=== PATIENT | male | born 1965 | race Caucasian/White ===

== ENCOUNTER 2017-11-11 21:21 | Emergency (ER) | payer BC ==
--- NOTE | 2017-11-11 21:27 | PDOC ---
History of Present Illness - General History Source: Patient Exam Limitations: No Limitations - History of Present Illness Initial Comments: 11/11/17 21:39 A portion of this note was documented by scribe services under my direction. I have reviewed the details of the note, within reason, and agree with the documentation. The case summary and management plan written by me. Assessment and plan: This is a 52-year-old male who comes in complaining of a infection of his forehead. Patient initially had it treated with Keflex without improvement of symptoms. However the infection also did not get worse with the Keflex. Patient now returns for reevaluation. Patient was given Bactrim as this most likely is MRSA. Patient discharged home with instructions to return its worse in 24 hours or not improved in 48 hours <Maximino Alves I - Last Filed: 11/11/17 21:39> - General History Source: Patient Exam Limitations: No Limitations - History of Present Illness Initial Comments: 11/11/17 21:49 The patient is a 52 year old male with no significant PMH of who presents to the emergency department with a forehead infection. The patient reports that he attained a forehead injury and was treated with keflex. The patient reports that there was no apparent improvement or worsening in symptoms with his forehead infection. He denies any other symptoms. The patient denies chest pain , shortness of breath, headache and dizziness.He denies fever, chills, nausea, vomit, diarrhea ,constipation or urinary symptoms. The patient denies any other complaints. PAST MEDICAL HISTORY: no significant history PAST SURGICAL HISTORY: no significant history FAMILY HISTORY: no pertinent history SOCIAL HISTORY: Pt lives with family and is employed. MEDICATIONS: reviewed ALLERGIES: As per nursing notes General: (+) forehead infection. No fevers or chills, no weakness, no weight loss HEENT: No change in vision. No sore throat,. No ear pain CardioVascular: No chest pain or shortness of breath Respiratory:No cough, or wheezing. Gastrointestinal: no nausea, vomiting, diarrhea or constipation, No rectal bleeding Genitourinary: No dysuria, hematuria, or frequency Musculoskeletal: No joint or muscle pain or swelling Neurologic: No headache, vertigo, dizziness or loss of consciousness Psychiatric: nor depression Skin: No rashes or easy bruising Endocrine: no increased thirst or abnormal weight change Allergic: no skin or latex allergy All other systems reviewed and normal GENERAL: The patient is awake, alert, and fully oriented, in no acute distress. HEAD: (+) partially healed abrasion with some associated erythema. No discharge and no significant swelling. EYES: Pupils equal, round and reactive to light, extraocular movements intact, sclera anicteric, conjunctiva clear. EXTREMITIES: Normal range of motion, no edema. NEUROLOGICAL: Normal speech, normal gait. PSYCH: Normal mood, normal affect. SKIN: Warm, Dry, normal turgor, no rashes or lesions noted. <Keyla Tyson - Last Filed: 11/11/17 21:50> - General Chief Complaint: Pain Stated Complaint: INFECTION TO FOREHEAD Time Seen by Provider: 11/11/17 21:26 Past History <Maximino Alves I - Last Filed: 11/11/17 21:39> <Keyla Tyson - Last Filed: 11/11/17 21:50> - Past Medical History Allergies/Adverse Reactions: Allergies Allergy/AdvReac Type Severity Reaction Status Date / Time No Known Allergies Allergy Verified 11/11/17 21:23 Home Medications: Ambulatory Orders Amlodipine Besylate [Norvasc -] 5 mg PO DAILY 11/11/17 Losartan/Hydrochlorothiazide [Losartan-Hctz 100-25 mg Tab] 1 each PO DAILY 11/11 Sulfamethoxazole/Trimethoprim [Bactrim DS -] 2 tab PO BID #40 tablet 11/11/17 *Physical Exam - Vital Signs Last Vital Signs Temp Pulse Resp BP Pulse Ox 98.4 F 87 16 153/91 99 11/11/17 21:25 11/11/17 21:25 11/11/17 21:25 11/11/17 21:25 11/11/17 21:25 <Keyla Tyson - Last Filed: 11/11/17 21:50> ED Treatment Course - Medications Given in the ED: ED Medications Discontinued Medications Generic Name Dose Route Start Last Admin Trade Name Freq PRN Reason Stop Dose Admin Trimethoprim/Sulfamethoxazole 2 each 11/11/17 21:35 11/11/17 21:40 Bactrim Ds - PO 11/11/17 21:36 2 each ONCE ONE Administration <Keyla Tyson - Last Filed: 11/11/17 21:50> *DC/Admit/Observation/Transfer - Discharge Dispostion Decision to Admit order: No <Maximino Alves I - Last Filed: 11/11/17 21:39> - Attestations Scribe Attestion: 11/11/17 21:49 Documentation prepared by Keyla Tyson, acting as nuclear medicine medical director for Maximino Alves MD. <Keyla Tyson - Last Filed: 11/11/17 21:50> Diagnosis at time of Disposition: Cellulitis of forehead - Discharge Dispostion Disposition: HOME Condition at time of disposition: Stable - Prescriptions Prescriptions: Sulfamethoxazole/Trimethoprim [Bactrim DS -] 2 tab PO BID #40 tablet - Patient Instructions Additional Instructions: Your symptoms should be better within 48 hours. However if you're significantly worse within the next 24 hours or you develop fevers and chills you should return to the ER for evaluation, IV antibiotics and possible admission. Take Bactrim 2 tablets twice a day for the next 10 days Return to the emergency department immediately with ANY new, persistent or worsening symptoms. Continue any medications as previously prescribed by your physician. You should follow up with your primary doctor as soon as possible regarding today's emergency department visit. . Please make sure your doctor reviews the results of your emergency evaluation. Thank you for coming to the Emergency Department today for your care. It was a pleasure to see you today. Please note that your evaluation is INCOMPLETE until you follow-up with your doctor.
[2017-11-11 21:32] VITALS: BP 153/91; PULSE 87; TEMP 98.4; BMI 27.1
[2017-11-11] MEDS ORDERED: SULFAMETHOXAZOLE/TRIMETHOPRIM 800MG/160MG D.S. TABLET PO ONE (21:35)
[2017-11-11] MEDS ORDERED: SULFAMETHOXAZOLE/TRIMETHOPRIM 800MG/160MG D.S. TABLET ONE (21:36)
== END 2017-11-11 21:43 | disposition home or self-care (01) ==
LOC: FER 21:21
DX: L03.211 Cellulitis of face (principal)
CPT/HCPCS: 99281-25

== ENCOUNTER 2017-11-13 09:57 | Inpatient (IN) | payer BC ==
--- NOTE | 2017-11-13 10:10 | PDOC ---
History of Present Illness - General Chief Complaint: Revisit,Wound Recheck Stated Complaint: WOUND CHECK Time Seen by Provider: 11/13/17 10:06 - History of Present Illness Initial Comments: 11/13/17 12:22 Chief complaint forehead infection History of present illness: 52 years old no significant past medical history presents to the emergency department with 2 week history of forehead infection. Patient hit his forehead with a backpack approximately 2 weeks ago clean the area with alcohol pad. Infection began patient sought treatment at urgent care was prescribed Keflex 5 days twice a day finished course last Sunday. Infection had not cleared presented to our emergency department 2 days ago and was started on Bactrim. Unfortunately no improvement in symptomatology. No fevers no chills no streaking red lines symptoms are moderate persistent constant with no exacerbating or alleviating factors. Past History - Past Medical History Allergies/Adverse Reactions: Allergies Allergy/AdvReac Type Severity Reaction Status Date / Time No Known Allergies Allergy Verified 11/13/17 09:59 Home Medications: Ambulatory Orders Amlodipine Besylate [Norvasc -] 5 mg PO DAILY 11/11/17 Losartan/Hydrochlorothiazide [Losartan-Hctz 100-25 mg Tab] 1 each PO DAILY 11/11 Sulfamethoxazole/Trimethoprim [Bactrim DS -] 2 tab PO BID #40 tablet 11/11/17 COPD: No HTN: Yes - Suicide/Smoking/Psychosocial Hx Smoking History: Never smoked Have you smoked in the past 12 months: No Information on smoking cessation initiated: No Hx Alcohol Use: (social) Drug/Substance Use Hx: No Substance Use Type: None Review of Systems - Review of Systems Comments:: 11/13/17 12:22 ROS: A complete review of 10 out of 10 review of systems is taken and is negative apart from what is previously mentioned below and in the HPI. *Physical Exam - Vital Signs Last Vital Signs Temp Pulse Resp BP Pulse Ox 98.7 F 88 16 139/84 97 11/13/17 09:57 11/13/17 09:57 11/13/17 09:57 11/13/17 09:57 11/13/17 09:57 - Physical Exam Comments: 11/13/17 12:23 Vitals: Triage Vital signs reviewed General Appearance: no acute distress, well nourished well developed, Head: Positive infection to forehead see skin exam. Cardiac: Regular rate and rhythym, no murmurs, no rubs, no gallops, Lungs: Clear to auscultation bilateral, good air movement bilaterally, Abdomen: Soft, non distended, normal bowel sounds, non tender to palpation Extremities: Full range of motion to all extremities, no cyanosis, clubbing, or edema Skin: 4 cm area of redness to forehead in the center abrasion with some yellow crusting in center. Psych: normal mood, normal affect ED Treatment Course - LABORATORY CBC & Chemistry Diagram: 11/13/17 11:00 11/13/17 11:00 Medical Decision Making - Medical Decision Making 11/13/17 12:24 Nonhealing infection to forehead. Patient is now failed to outpatient antibiotics Case discussed with infectious disease. Dr. Abad. Recomends [facility]. Will admit pt. to medicine for further management. *DC/Admit/Observation/Transfer Diagnosis at time of Disposition: Cellulitis of forehead - Discharge Dispostion Condition at time of disposition: Stable Decision to Admit order: Yes - Referrals - Patient Instructions - Post Discharge Activity
[2017-11-13 11:18] LABS: BASO % 1.5 % (0-2.0); EOS % 2.2 % (0-4.5); HEMATOCRIT 46.5 % (35.4-49); HEMOGLOBIN 16.2 GM/dl (11.7-16.9); LYMPH % 30.8 % (8-40); MCHC 34.8 g/dl (32.0-35.9); MEAN CELL VOLUME 91.9 fl (80-96); MEAN PLT VOLUME 8.4 fl (7.5-11.1); NEUT % 55.5 % (42.8-82.8); PLATELET COUNT 289 K/MM3 (134-434); RBC 5.06 M/mm3 (4.00-5.60); RDW 12.1 % (11.9-15.9); WHITE BLOOD COUNT 5.8 K/mm3 (4.0-10.8)
[2017-11-13 11:26] LABS: ALBUMIN 4.2 g/dl (3.5-5.0); ALK PHOS 37 U/L (32-92); ANION GAP 5 (8-16); BILIRUBIN,TOTAL 0.6 mg/dl (0.2-1.0); BLOOD UREA NITROGEN 15 mg/dl (7-18); CALCIUM 9.2 mg/dl (8.4-10.2); CHLORIDE 105 mmol/L (98-107); CO2 24 mmol/L (22-28); CREATININE 1.1 mg/dl (0.6-1.3); GLUCOSE,RANDOM 93 mg/dl (74-106); POTASSIUM 3.9 mmol/L (3.5-5.1); SGOT/AST 34 U/L (10-42); SGPT/ALT 40 U/L (10-40); SODIUM 134 mmol/L (136-145); TOT PROT 6.9 g/dl (6.4-8.3)
[2017-11-13] MEDS ORDERED: VANCOMYCIN 1,000 MG in DEXTROSE 5%-WATER - 250 ML IVPB ONE (12:12)
--- NOTE | 2017-11-13 12:14 | HP ---
CHIEF COMPLAINT: cellulitis to forehead PCP: Dr Long HISTORY OF PRESENT ILLNESS: Patient is a 52 -year-old male with a past medical history of hypertension. Patient reports weeks ago he tripped and fell and struck his forehead on a backpack. He was evaluated at a local urgent care and was prescribed Keflex. Patient does report compliance with medication however after 5 days he noted no significant change to the erythema to his forehead. Patient was evaluated in this emergency department on 11/11/2017 and was started on Bactrim. His first dose of Bactrim was 11/11/2017. Patient reports no improvement to the erythema and ongoing tenderness to the site. He denies any fever. Patient does report compliance with bactrim. patient does report a history of periorbital cellulitis early in the year. 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 Smoking:none Alcohol:none Drugs: none Family History: non contributory to this admission Allergies No Known Allergies Allergy (Verified 11/13/17 09:59) HOME MEDICATIONS: Home Medications Medication Instructions Recorded Amlodipine Besylate [Norvasc -] 5 mg PO DAILY 11/11/17 Losartan/Hydrochlorothiazide 1 each PO DAILY 11/11/17 [Losartan-Hctz 100-25 mg Tab] Sulfamethoxazole/Trimethoprim 2 tab PO BID #40 tablet 11/11/17 [Bactrim DS -] REVIEW OF SYSTEMS CONSTITUTIONAL: Absent: fever, chills, diaphoresis, generalized weakness, malaise, loss of appetite, weight change HEENT: Absent: rhinorrhea, nasal congestion, throat pain, throat swelling, difficulty swallowing, mouth swelling, ear pain, eye pain, visual changes CARDIOVASCULAR: Absent: chest pain, syncope, palpitations, irregular heart rate, lightheadedness , peripheral edema RESPIRATORY: Absent: cough, shortness of breath, dyspnea with exertion, orthopnea, wheezing, stridor, hemoptysis GASTROINTESTINAL: Absent: abdominal pain, abdominal distension, nausea, vomiting, diarrhea, constipation, melena, hematochezia GENITOURINARY: Absent: dysuria, frequency, urgency, hesitancy, hematuria, flank pain, genital pain MUSCULOSKELETAL: Absent: myalgia, arthralgia, joint swelling, back pain, neck pain SKIN: present: Absent: rash, itching, pallor HEMATOLOGIC/IMMUNOLOGIC: Absent: easy bleeding, easy bruising, lymphadenopathy, frequent infections ENDOCRINE: Absent: unexplained weight gain, unexplained weight loss, heat intolerance, cold intolerance NEUROLOGIC: Absent: headache, focal weakness or paresthesias, dizziness, unsteady gait, seizure, mental status changes, bladder or bowel incontinence PSYCHIATRIC: Absent: anxiety, depression, suicidal or homicidal ideation, hallucinations. PHYSICAL EXAMINATION Vital Signs - 24 hr 11/13/17 09:57 Temperature 98.7 F Pulse Rate 88 Respiratory 16 Rate Blood Pressure 139/84 O2 Sat by Pulse 97 Oximetry (%) GENERAL: Awake, alert, and fully oriented, in no acute distress. HEAD: Normal with no signs of trauma. EYES: Pupils equal, round and reactive to light, extraocular movements intact, sclera anicteric, conjunctiva clear. No lid lag. EARS, NOSE, THROAT: Ears normal, nares patent, oropharynx clear without exudates. Moist mucous membranes. NECK: Normal range of motion, supple without lymphadenopathy, JVD, or masses. LUNGS: Breath sounds equal, clear to auscultation bilaterally. No wheezes, and no crackles. No accessory muscle use. HEART: Regular rate and rhythm, normal S1 and S2 without murmur, rub or gallop. ABDOMEN: Soft, nontender, not distended, normoactive bowel sounds, no guarding, no rebound, no masses. No hepatomegaly or splenomegaly. MUSCULOSKELETAL: Normal range of motion at all joints. No bony deformities or tenderness. No CVA tenderness. UPPER EXTREMITIES: 2+ pulses, warm, well-perfused. No cyanosis. No clubbing. No peripheral edema. LOWER EXTREMITIES: 2+ pulses, warm, well-perfused. No calf tenderness. No peripheral edema. NEUROLOGICAL: Cranial nerves II-XII intact. Normal speech. Normal gait. PSYCHIATRIC: Cooperative. Good eye contact. Appropriate mood and affect. SKIN: 4 cm abrasion to forehead 1 cm of surrounding erythema and no fluctuance noted, Warm, dry, normal turgor, no rashes or lesions noted, normal capillary refill. 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 Abad - no palpable fluctuance noted to site, appreciate improvement of plastic surgeon Dr. Pierce - no leukocytosis patient is afebrile continue to trend CBC and fever curve 2) cardiovascular Hypertension - Continue Norvasc and losartan - b/p at goal 3) pulm Asthma - No acute exacerbation at this time patient reports asthma is exacerbated during change of seasons, continue Symbicort home dose with albuterol when necessary F/E/N - Low-sodium diet - Replete electrolytes when necessary ppx - pepcid - oob dispo: he requires inpatient admission after failing outpatient therapy Visit type - Emergency Visit Emergency Visit: Yes ED Registration Date: 11/13/17 Care time: The patient presented to the Emergency Department on the above date and was hospitalized for further evaluation of their emergent condition. - New Patient This patient is new to me today: Yes Date on this admission: 11/14/17 - Critical Care Critical Care patient: No Hospitalist Screening - Colonoscopy Questionnaire Colonoscopy Questionnaire: Colonoscopy Questionnaire - Patient: 50 - 75 years old and never had a screening colonoscopy: No History of colon or rectal polyps, or CA: No History of IBD, Crohn's disease or UC: No History of abdominal radiation therapy as a child: No - Relative: 1 with colon or rectal CA, or polyps at age 60 or younger: No Colon or rectal CA diagnosed at age 45 or younger: No Multiple relatives with colon or rectal CA: No - Outcome: Screening Result: Negative Screen
[2017-11-13] MEDS ORDERED: VANCOMYCIN 1,000 MG VIAL (RESTRICTED TO ID ONLY) ONE (12:19)
[2017-11-13] MEDS ORDERED: ALBUTEROL SO4 0.083% IH SOL 2.5 MG/3 ML VIAL.NEB. NEB PRN (13:36)
[2017-11-13 13:51] VITALS: BMI 27.6
[2017-11-13] MEDS ORDERED: ZOLPIDEM TARTRATE 5 MG TABLET PO PRN (14:18)
--- NOTE | 2017-11-13 16:58 | PN ---
Progress Note (short form) - Note Progress Note: ID Consult dictated Facial cellulitis/ non-healing soft tissue wound Await c/s Empiric vanco/levaquin Topical bacitracin Plastic surgery evaluation
[2017-11-13] MEDS: BACITRACIN 0.9 GM PACKET TP SCH (17:22)
[2017-11-13] MEDS ORDERED: REFRIGERATED ANITBIOTICS ONE (19:43)
[2017-11-13] MEDS ORDERED: PT OWN MED DRAWER 7, Y5N ONE (21:38)
[2017-11-13] MEDS: FAMOTIDINE 20 MG TABLET PO SCH (22:12)
[2017-11-13] MEDS: BUDESONIDE/FORMETEROL FUMARATE 80/4.5 mcg INHALER IH SCH (22:12)
[2017-11-14] MEDS ORDERED: REFRIGERATED ANITBIOTICS ONE ×2 (00:14→14:22)
[2017-11-14] MEDS: VANCOMYCIN 1,250 MG in DEXTROSE 5%-WATER - 250 ML IVPB SCH ×2 (00:16→14:25)
[2017-11-14 06:17] VITALS: BP 110/65; PULSE 69; TEMP 98.5
[2017-11-14 08:01] LABS: BASO % 1.1 % (0-2.0); EOS % 3.4 % (0-4.5); HEMATOCRIT 45.4 % (35.4-49); HEMOGLOBIN 15.9 GM/dl (11.7-16.9); LYMPH % 32.5 % (8-40); MCH 32.3 pg (25.7-33.7); MCHC 35.1 g/dl (32.0-35.9); MEAN CELL VOLUME 91.9 fl (80-96); MEAN PLT VOLUME 8.5 fl (7.5-11.1); MONO % 10.6 % (3.8-10.2); NEUT % 52.4 % (42.8-82.8); PLATELET COUNT 275 K/MM3 (134-434); RBC 4.95 M/mm3 (4.00-5.60); WHITE BLOOD COUNT 6.2 K/mm3 (4.0-10.8)
[2017-11-14 08:22] LABS: ANION GAP 6 (8-16); BLOOD UREA NITROGEN 13 mg/dl (7-18); CALCIUM 9.1 mg/dl (8.4-10.2); CHLORIDE 106 mmol/L (98-107); CO2 23 mmol/L (22-28); CREATININE 1.1 mg/dl (0.6-1.3); GLUCOSE,RANDOM 102 mg/dl (74-106); MAGNESIUM 1.9 mg/dL (1.8-2.4); PHOSPHOROUS 2.8 mg/dl (2.5-4.6); POTASSIUM 4.2 mmol/L (3.5-5.1); SODIUM 135 mmol/L (136-145)
--- NOTE | 2017-11-14 09:29 | PN ---
Progress Note, Physician History of Present Illness: No c/o forehead pain No reported wound drainage No fever/ chillls Tolerating antibiotics - Current Medication List Current Medications: Active Medications Albuterol Sulfate (Ventolin 0.083% Nebulizer Soln -) 1 amp NEB Q4H PRN PRN Reason: SHORT OF BREATH/WHEEZING Amlodipine Besylate (Norvasc -) 5 mg PO DAILY [facility] Bacitracin (Bacitracin -) 0.9 gm TP DAILY [facility] Last Admin: 11/13/17 17:22 Dose: 0.9 gm Budesonide/Formoterol Fumarate (Symbicort 80/4.5mcg -) 2 puff IH BID [facility] Last Admin: 11/13/17 22:12 Dose: 2 puff Famotidine (Pepcid -) 20 mg PO BID [facility] Last Admin: 11/13/17 22:12 Dose: 20 mg Vancomycin HCl 1,250 mg/ (Dextrose) 250 mls @ 166.667 mls/hr IVPB BID@0100, 1300 [facility]; Protocol Last Admin: 11/14/17 00:16 Dose: 166.667 mls/hr Levofloxacin (Levaquin 500 Mg Premixed Ivpb -) 500 mg in 100 mls @ 100 mls/hr IVPB DAILY [facility]; Protocol Last Admin: 11/13/17 17:22 Dose: 100 mls/hr Losartan Potassium (Cozaar -) 100 mg PO DAILY [facility] Zolpidem Tartrate (Ambien -) 5 mg PO HS PRN PRN Reason: INSOMNIA - Objective Vital Signs: Vital Signs Temperature 98.5 F 11/14/17 06:00 Pulse Rate 69 11/14/17 06:00 Respiratory Rate 18 11/14/17 06:00 Blood Pressure 110/65 11/14/17 06:00 O2 Sat by Pulse Oximetry (%) 96 11/14/17 06:00 HENT: Yes: Other (forehead ulcer dry; decreased erythema. No tenderness/ fluctuance) Cardiovascular: Yes: Regular Rate and Rhythm, S1, S2 Respiratory: Yes: CTA Bilaterally Gastrointestinal: Yes: Normal Bowel Sounds, Soft. No: Tenderness Edema: No Labs: CBC, BMP 11/14/17 07:30 11/14/17 07:30 Assessment/Plan Facial cellulitis/ non-healing soft tissue wound Await c/s Continue vancomycin/ levaquin PICC for outpatient antibiotic tx
[2017-11-14] MEDS ORDERED: PICC LINE 8 ML FLUSH PROTOCOL IVPUSH PRN (09:34)
[2017-11-14] MEDS ORDERED: LOSARTAN POTASSIUM 50 MG TABLET (FP) PO SCH (10:00)
[2017-11-14] MEDS ORDERED: amLODIPine BESYLATE 5 MG TABLET (FP) PO SCH (10:00)
[2017-11-14] MEDS: FAMOTIDINE 20 MG TABLET PO SCH (10:06)
[2017-11-14] MEDS: BACITRACIN 0.9 GM PACKET TP SCH (10:08)
[2017-11-14] MEDS: BUDESONIDE/FORMETEROL FUMARATE 80/4.5 mcg INHALER IH SCH (10:09)
--- NOTE | 2017-11-14 10:55 | CONS ---
DATE OF CONSULTATION: DATE OF DICTATION: 11/14/2017 A 52-year-old male, history of hypertension, asthma, evaluated for cellulitis of the forehead. He reports that approximately 2 weeks prior to admission he sustained trauma to his forehead after tripping and striking his head against a backpack. He developed an area of erythema which he treated topically. He noted increasing redness and swelling. He presented to an urgent care center where he was prescribed Keflex. He took the Keflex for 5 days. Despite this, he had persistent erythema and swelling of the forehead area. He had presented to the emergency room at [facility] on November 11, 2017. He was evaluated and prescribed Bactrim. He returned to the emergency room on November 13 with persistent erythema and swelling of the forehead area. He was evaluated in the emergency room, empirically treated with vancomycin. He denied any purulent wound drainage. No associated fever or chills. He is nondiabetic. No history of serious soft tissue infection requiring hospitalization. PAST MEDICAL HISTORY: Positive for hypertension and asthma. ALLERGIES: No known allergies. MEDICATIONS: Medications as an outpatient included Keflex, Bactrim, Norvasc, losartan. SOCIAL HISTORY: He lives at home with his significant other. He is a nonsmoker, nondrinker. REVIEW OF SYSTEMS: Neurologic: No loss of consciousness, seizure activity, focal weakness. Cardiac: Negative chest pain or palpitations. Respiratory: Negative cough or sputum production. Gastrointestinal: Negative vomiting or diarrhea. Genitourinary: Negative for urinary tract infection. LABORATORY DATA: White count 5.8, 55 neutrophils, 30 lymphocytes, 10 monocytes. Hematocrit 46.5. Platelet count 289. BUN 15, creatinine 1.1. Liver enzymes normal. Blood and wound cultures are pending. PHYSICAL EXAMINATION: General: He is awake and alert. He is not acutely toxic appearing. Vital Signs: Temperature 98.1, blood pressure 124/82, pulse 81, regular. Respirations 18 per minute. HEENT: Sclerae are anicteric. Examination of the forehead, there is an approximately 4 x 4-cm area of erythema present on the central forehead with a central area of superficial ulceration with encrustation. There is no drainage, no fluctuance or crepitance. No expressible pus. Minimally tender to palpation. No periorbital swelling. Cardiovascular: Heart sounds S1, S2. Lungs: Clear. Abdomen: Soft and nontender. Extremities: Negative for edema. IMPRESSION: 1. Facial cellulitis. 2. Nonhealing soft tissue wound of the face. Await culture results. Will broaden antimicrobial coverage to include possible resistant skin pathogens including methicillin-resistant Staphylococcus aureus with vancomycin. Will add Levaquin for empiric coverage of gram-negative pathogens. Apply topical Bacitracin. Plastic Surgery evaluation. Will follow. Thank you for the kind referral. JONO PAREKH M.D. [id number]
--- NOTE | 2017-11-14 11:38 | DS ---
Physical Exam: SUBJECTIVE: Patient seen and examined, patient is an laboratory throughout bedside denies any dizziness or tactile fever reports feeling well tolerating antibiotic wants to go home OBJECTIVE: Patient is a 52 -year-old male with a past medical history of hypertension. Patient reports weeks ago he tripped and fell and struck his forehead on a backpack. He was evaluated at a local urgent care and was prescribed Keflex. Patient does report compliance with medication however after 5 days he noted no significant change to the erythema to his forehead. Patient was evaluated in this emergency department on 11/11/2017 and was started on Bactrim. His first dose of Bactrim was 11/11/2017. Patient reports no improvement to the erythema and ongoing tenderness to the site. He denies any fever. Patient does report compliance with bactrim. patient does report a history of periorbital cellulitis early in the year. ER course was notable for: (1) WBC 5.8 (2)EKG, sinus rhythm with PVCs Vital Signs Period Temp Pulse Resp BP Sys/Garrison Pulse Ox Last 24 Hr 97.9 F-98.5 F 68-81 16-19 110-129/65-82 96-98 PHYSICAL EXAM GENERAL: The patient is awake, alert, and fully oriented, in no acute distress. HEAD: Normal with no signs of trauma. EYES: PERRL, extraocular movements intact, sclera anicteric, conjunctiva clear. ENT: Ears normal, nares patent, oropharynx clear without exudates, moist mucous membranes. NECK: Trachea midline, full range of motion, supple. LUNGS: Breath sounds equal, clear to auscultation bilaterally, no wheezes, no crackles, no accessory muscle use. HEART: Regular rate and rhythm, S1, S2 without murmur, rub or gallop. ABDOMEN: Soft, nontender, nondistended, normoactive bowel sounds, no guarding, no rebound, no hepatosplenomegaly, no masses. EXTREMITIES: 2+ pulses, warm, well-perfused, no edema. NEUROLOGICAL: Cranial nerves II through XII grossly intact. Normal speech, gait not observed. PSYCH: Normal mood, normal affect. SKIN: 4 cm abrasion to forehead 1 cm of surrounding erythema (much improved) and no fluctuance noted,Warm, dry, normal turgor, no rashes or lesions noted. LABS Laboratory Results - last 24 hr 11/14/17 11/14/17 11/14/17 07:30 07:30 07:30 WBC 6.2 RBC 4.95 Hgb 15.9 Hct 45.4 MCV 91.9 MCH 32.3 MCHC 35.1 RDW 12.0 Plt Count 275 MPV 8.5 Neutrophils % 52.4 Lymphocytes % 32.5 Monocytes % 10.6 H Eosinophils % 3.4 Basophils % 1.1 Sodium 135 L Potassium 4.2 Chloride 106 Carbon Dioxide 23 Anion Gap 6 L BUN 13 Creatinine 1.1 Random Glucose 102 Hemoglobin A1c % 5.3 Calcium 9.1 Phosphorus 2.8 Magnesium 1.9 Microbiology 11/13/17 11:15 Blood - Peripheral Venous Blood Culture - Preliminary NO GROWTH OBTAINED AFTER 24 HOURS, INCUBATION TO CONTINUE FOR 4 DAYS. 11/13/17 11:00 Blood - Peripheral Venous Blood Culture - Preliminary NO GROWTH OBTAINED AFTER 24 HOURS, INCUBATION TO CONTINUE FOR 4 DAYS. 11/13/17 12:15 Skin - Cellulitis Gram Stain - Final 11/13/17 12:15 Skin - Cellulitis Wound Culture - Preliminary NO GROWTH OBTAINED AFTER 24 HOURS INCUBATION, REINCUBATED. HOSPITAL COURSE: patient was admitted from emergency department for cellulitis of forehead after failing outpatient therapy. 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 patient was treated with vancomycin for 24 hours, erythema much improved. Infectious disease physician Dr. Rojas was consulted. plastic surgeon Dr. Pierce was consulted. No leukocytosis noted. Patient remained afebrile throughout admission. Patient has a known history of hypertension. Norvasc and losartan was continued and b/p at goal. PLAN - PICC line inserted 11/14/2017. - Continue vancomycin 2 g IV twice a day and levaquin 500mg daily - strict follow up with Dr Rojas on 11/16 Date of Admission:11/13/17 Date of Discharge: 11/14/17 Minutes to complete discharge: 45 Discharge Summary Reason For Visit: CELLULITIS OF FOREHEAD Current Active Problems Cellulitis of forehead (Acute) Condition: Improved - Instructions Diet, Activity, Other Instructions: continue vancomycin IV as prescribed Continue Levaquin 500 milligrams daily for the next 7 days apply bacitracin to forehead twice a day Please follow up with the infectious disease physician Dr. Rojas on Sunday, 06/2017 please call the office to schedule an appointment if any new or persistent symptoms develop please return to emergency department Referrals: Shaw Rojas MD [Staff Physician] - 11/16/17 Disposition: VNS/HOME HEALTH CARE - Home Medications Comprehensive Discharge Medication List: Ambulatory Orders Amlodipine Besylate [Norvasc -] 5 mg PO DAILY 11/11/17 Losartan/Hydrochlorothiazide [Losartan-Hctz 100-25 mg Tab] 1 each PO DAILY 11/11 Sulfamethoxazole/Trimethoprim [Bactrim DS -] 2 tab PO BID #40 tablet 11/11/17 This patient is new to me today: No Emergency Visit: Yes ED Registration Date: 11/13/17 Care time: The patient presented to the Emergency Department on the above date and was hospitalized for further evaluation of their emergent condition. Critical Care patient: No - Discharge Referral Referred to [facility] No
--- NOTE | 2017-11-14 13:28 | EKG ---
Test Reason : Blood Pressure : / mmHG Vent. Rate : 079 BPM Atrial Rate : 079 BPM P-R Int : 162 ms QRS Dur : 112 ms QT Int : 396 ms P-R-T Axes : 053 037 065 degrees QTc Int : 454 ms SINUS RHYTHM WITH FREQUENT PREMATURE VENTRICULAR COMPLEXES POSSIBLE LEFT ATRIAL ENLARGEMENT RIGHT BUNDLE BRANCH BLOCK ABNORMAL ECG NO PREVIOUS ECGS AVAILABLE Confirmed by EYAD TRUJILLO MD ([id number]) on 11/14/2017 1:27:31 PM Referred By: MD SIDDIQUI Confirmed By:EYAD TRUJILLO MD
== END 2017-11-14 16:45 | disposition home health service (06) | DRG 603 ==
LOC: FER 09:57 → FM/S 12:13
PROVIDERS: ADMIT Internal Medicine; ATTEND Nurse Practitioner Family
PROC: 02HV33Z Insertion of Infusion Device into Superior Vena Cava, Percutaneous Approach (ICD-10-PCS; principal; 2017-11-14)
DX: L03.211 Cellulitis of face (principal)
CPT/HCPCS: 36415; 36569; 77001-TC-FY; 80048; 80053; 83036; 83735; 84100; 85025; 87040; 87070; 87081; 87205; 93005; 99282-25; C1751

== ENCOUNTER 2017-11-18 10:18 | Emergency (ER) | payer BC ==
[2017-11-18] MEDS ORDERED: VANCOMYCIN 1 GRAM (PRE-DOCKED) 1,000 MG/250 ML BAG IVPB ONE (10:30)
[2017-11-18] MEDS ORDERED: VANCOMYCIN 1,000 MG VIAL (RESTRICTED TO ID ONLY) ONE (10:30)
--- NOTE | 2017-11-18 10:30 | PDOC ---
History of Present Illness - General Chief Complaint: PICC Line Insertion Stated Complaint: REMOVE PICC LINE Time Seen by Provider: 11/18/17 10:28 History Source: Patient - History of Present Illness Initial Comments: 11/18/17 11:25 Pt presents to the ED requesting removal of Picc line. Patient had line placed during out patient treatment for forehead cellulitis that had been resistant to kelfex and bactrim. Patient was discharged from the hospital and followed up with Dr. Rojas on Sunday. States that he will be traveling to the [facility] tomorrow and needs the line removed so that he can travel. Past History - Past Medical History Allergies/Adverse Reactions: Allergies Allergy/AdvReac Type Severity Reaction Status Date / Time No Known Allergies Allergy Verified 11/18/17 10:22 Home Medications: Ambulatory Orders Amlodipine Besylate [Norvasc -] 5 mg PO DAILY 11/11/17 Losartan/Hydrochlorothiazide [Losartan-Hctz 100-25 mg Tab] 1 each PO DAILY 11/11 Amoxicillin/Potassium Clav [Augmentin 875-125 Tablet] 1 each PO BID 11/18/17 Sulfamethoxazole/Trimethoprim [Bactrim Ds -] 1 tab PO BID 11/18/17 Asthma: Yes Cancer: No COPD: No HTN: Yes - Surgical History Abdominal Surgery: Yes (HERNIA 1982) - Suicide/Smoking/Psychosocial Hx Smoking History: Never smoked Have you smoked in the past 12 months: No If you are a former smoker, when did you quit?: 22 YEARS AGO Hx Alcohol Use: (social) Drug/Substance Use Hx: No Substance Use Type: None Review of Systems - Review of Systems Able to Perform ROS?: Yes Is the patient limited Sami proficient: No Constitutional: No: Symptoms Reported, See HPI, Chills, Diaphoresis, Fever, Loss of Appetite, Malaise, Night Sweats, Weakness, Weight Stable, Unintentional Wgt. Loss, Unexplained wgt Loss, Other Integumentary: Yes: Erythema (patient reports great improvement in the area of erythema on his forehead). No: Symptoms Reported, See HPI, Bruising, Change in Color, Change in Hair/Nails, Dryness, Flushing, Lesions, Lumps, Pallor, Pruritus , Rash, Sweating, Other *Physical Exam - Physical Exam General Appearance: Yes: Nourished, Appropriately Dressed. No: Apparent Distress, Disheveled, Mild Distress (+ very small area of erythema on patient's forehead without fluctuance or tenderness), Moderate Distress, Severe Distress, Alcohol on Breath, Intoxicated, Cachetic, Obese, Thin, Other Medical Decision Making - Medical Decision Making 11/18/17 11:35 Pt presents to the ED requesting Picc line removal. Dr. Rojas has come to the ED and evaluated the patient and agrees that this would be appropriate. Brenna will be discharged home and will continue augmentin. Instructed to return immediately to the ED for worsening symptoms. *DC/Admit/Observation/Transfer Diagnosis at time of Disposition: Cellulitis of forehead - Discharge Dispostion Disposition: HOME Condition at time of disposition: Good Decision to Admit order: No - Referrals Referrals: Shaun Long MD [Primary Care Provider] - - Patient Instructions Printed Discharge Instructions: DI for Cellulitis -- Adult Additional Instructions: return to the ED for fever, worsening redness, nausea or vomiting, pus from the site, other new or worsening symptoms. - Post Discharge Activity
[2017-11-18 10:52] VITALS: BP 134/84; PULSE 88; TEMP 98.6; BMI 27.6
--- NOTE | 2017-11-18 12:35 | PN ---
Progress Note (short form) - Note Progress Note: ID Consult dictated Seen in ED D/C PICC Augmentin 875mg po bid 7-10d
--- NOTE | 2017-11-18 13:32 | CONS ---
DATE OF CONSULTATION: 11/18/2017 The patient is a 52-year-old male with history of hypertension and asthma, re-evaluated for cellulitis of the forehead. He was hospitalized at [facility] from November 13 through November 14. He was seen in consultation on November 14, 2017. He reports that approximately 2 weeks prior to his admission to the hospital, he sustained trauma to his forehead after tripping and striking his head against a backpack. An area of erythema developed, which he treated topically. He began to notice increasing swelling and redness. He had presented to an outside provider and was prescribed Keflex. Despite taking a course of Keflex, the cellulitis worsened. He returned for evaluation and was prescribed Bactrim, for which he took 1 or 2 days' worth. The patient returned to the emergency room on November 13 with persistent erythema and swelling of the forehead area. He was evaluated in the emergency room, cultures were obtained, and he was treated with vancomycin and Levaquin. The patient was discharged to home with a PICC line to complete a 7-day course of vancomycin plus oral Levaquin. He was seen in the office on November 16, 2017, with some improvement, however, the wound remained present, approximately 3 x 4 cm, with a honey-colored crust. In addition, he was seen by his plastic surgeon on the same day. He reports significant improvement over the weekend, no wound drainage, no fever or chills. Past medical history positive for hypertension and asthma. He is non-diabetic. No known allergies. Outpatient medications include Keflex, Bactrim, Norvasc, losartan, vancomycin, Levaquin. SOCIAL HISTORY: He lives at home with his significant other. He is a nonsmoker. SYSTEMS REVIEW: Neurologic: No loss of consciousness, seizure activity, or focal weakness. Cardiac: Negative chest pain or palpitations. Respiratory: Negative cough or sputum production. Gastrointestinal: Negative vomiting or diarrhea. Genitourinary: Negative for urinary tract infection. PHYSICAL EXAMINATION: Vital Signs: Temperature 98.6, blood pressure 134/84, pulse 88 regular, respirations 15 per minute. Eyes: Sclerae anicteric. Head: Examination of the forehead area: There has been significant improvement in the facial cellulitis. There is an approximately 3 x 4 cm circular area of erythema present in the mid forehead. The encrustation has now resolved. The cellulitis is less erythematous. No drainage noted. There is no periorbital swelling, no crepitus of fluctuance. IMPRESSION: Resolving facial cellulitis. At this point, will advise 1 dose of vancomycin, then discontinuation of the PICC line, substitute Augmentin 875 mg p.o. b.i.d. for 7 to 10 days. Patient will be traveling abroad and I have advised him to seek medical care should the cellulitis worsen on therapy. I have also offered to see him in followup upon his return, should the need arise. Thank you for the kind referral. JONO PAREKH M.D. [id number]
== END 2017-11-18 12:20 | disposition home or self-care (01) ==
LOC: FER 10:18
DX: L03.211 Cellulitis of face (principal); Z87.891 Personal history of nicotine dependence; I10 Essential (primary) hypertension; J45.909 Unspecified asthma, uncomplicated
CPT/HCPCS: 99281-25